=== PATIENT | female | born 1950 | race Two or more races ===

== ENCOUNTER 2021-05-22 13:31 | Emergency (ER) | payer OTHER ==
[~2021-05-22] VITALS: Ht 154.9 cm; Wt 55.3 kg
[2021-05-22] MEDS ORDERED: COZAAR100 MG PO (14:01)
== END 2021-05-22 16:04 | disposition home or self-care (01) ==
LOC: ER 13:31
DX: I10 Essential (primary) hypertension (principal)

== ENCOUNTER 2021-11-10 08:42 | Emergency (ER) | payer OTHER ==
[~2021-11-10] VITALS: Ht 154.9 cm; Wt 54.4 kg
[~2021-11-10 08:42] MED LIST: COZAAR100 MG PO
[2021-11-10] MEDS ORDERED: PEPCID AC10 MG (09:09)
[2021-11-10] MEDS ORDERED: AMLODIPINE-OLM1 EAC2 (09:09)
== END 2021-11-10 12:58 | disposition home or self-care (01) ==
LOC: ER 08:42
DX: M25.512 Pain in left shoulder (principal); Z88.6 Allergy status to analgesic agent; I10 Essential (primary) hypertension; G43.909 Migraine, unspecified, not intractable, without status migrainosus

== ENCOUNTER 2024-05-01 12:33 | Emergency (ER) | payer OTHER ==
[~2024-05-01] VITALS: Ht 154.9 cm; Wt 54.4 kg
[~2024-05-01 12:33] MED LIST changes: +AMLODIPINE-OLM1 EAC2; +PEPCID AC10 MG
[2024-05-01 12:58] VITALS: BP 158/80; O2SAT 99
[2024-05-01] MEDS ORDERED: CEPHALEXIN750 MG PO (13:10)
[2024-05-01] MEDS ORDERED: PEPCID AC20 MG PO (13:10)
[2024-05-01] MEDS ORDERED: TETANUS & DIPHTHERIA TOX,ADULT 0.5 ML VIAL IM ONE (13:15)
[2024-05-01] MEDS ORDERED: CEFTRIAXONE SODIUM 1,000 MG VIAL IM ONE (13:15)
== END 2024-05-01 13:23 | disposition home or self-care (01) ==
LOC: ER 12:33
DX: S61.221A Laceration with foreign body of left index finger without damage to nail, initial encounter (principal); W26.0XXA Contact with knife, initial encounter; Y93.89 Activity, other specified; Y92.89 Other specified places as the place of occurrence of the external cause
CPT/HCPCS: 12001; 90471; 90714; 96372; 99282; J0696; J1670